=== PATIENT | female | born 2000 | race Caucasian/White ===

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

== ENCOUNTER 2018-07-21 14:20 | Emergency (ER) | payer MEDICAID, SELFPAY ==
[2018-07-21 14:21] VITALS: BP 120/79; PULSE 77; RESP 16; TEMP 37.1; O2SAT 98; BMI 38.8
--- NOTE | 2018-07-21 15:02 | ED.VISSUMM ---
- ER Visit Summary Date of Service: 07/21/18 Chief Complaint: Vaginal bleeding History of Present Illness: The patient is a 18 F here for vaginal bleeding. The bleeding started yesterday evening. She says it is heavier than her normal periods. She is passing clots. Her mother advised her to get checked out. She does take control and her next menstrual period is due next week. She is sexually active. Denies any rash or lesions or new discharge otherwise. She does have chronic kidney infections, but denies urinary symptoms. No fevers. Blood thinners. Physical Examination: Vitals are normal. Afebrile. Alert and oriented. No acute distress. Abdomen soft and nontender. Pelvic exam pending. Skin appears normal. Test Results: Urinalysis and test pending. Emergency Department Course and Treatment: Patient has 1 day of heavy vaginal bleeding. She is otherwise healthy. Her vitals are normal. Will check urine testing and a pelvic exam. Urinalysis shows some blood but no signs of infection. test was negative. Her nurse financial services counselor the pelvic exam. Showed mild bleeding. Cervix was closed. No lesions or other abnormal findings Patient does not require hospitalization or any other emergency testing. She is appropriate for outpatient follow-up for this. Treatment Plan: Discharged to follow-up for outpatient care. Return for any new or worsening issues. Disposition: Discharge Impression: 1. Vaginal bleeding This note was generated with [employer] dictation software. It may contain incorrect words, spelling, and punctuation that were not noted in review of the chart prior to signing ED Disposition - Plan for ED Patient: Chief Complaint: Vag Bleeding Referrals: Isaura Camejo MD [Primary Care Provider] -
--- NOTE | 2018-07-21 15:05 | ED.DCSUM_ITS ---
- ER Visit Summary Date of Service: 07/21/18 Chief Complaint: Vaginal bleeding History of Present Illness: The patient is a 18 F here for vaginal bleeding. The bleeding started yesterday evening. She says it is heavier than her normal periods. She is passing clots. Her mother advised her to get checked out. She does take control and her next menstrual period is due next week. She is sexually active. Denies any rash or lesions or new discharge otherwise. She does have chronic kidney infections, but denies urinary symptoms. No fevers. Blood thinners. Physical Examination: Vitals are normal. Afebrile. Alert and oriented. No acute distress. Abdomen soft and nontender. Pelvic exam pending. Skin appears normal. Test Results: Urinalysis and test pending. Emergency Department Course and Treatment: Patient has 1 day of heavy vaginal bleeding. She is otherwise healthy. Her vitals are normal. Will check urine testing and a pelvic exam. Urinalysis shows some blood but no signs of infection. test was negative. Her nurse community relations liaison the pelvic exam. Showed mild bleeding. Cervix was closed. No lesions or other abnormal findings Patient does not require hospitalization or any other emergency testing. She is appropriate for outpatient follow-up for this. Treatment Plan: Discharged to follow-up for outpatient care. Return for any new or worsening issues. Disposition: Discharge Impression: 1. Vaginal bleeding This note was generated with [employer] dictation software. It may contain incorrect words, spelling, and punctuation that were not noted in review of the chart prior to signing ED Disposition - Plan for ED Patient: Chief Complaint: Vag Bleeding Referrals: Isaura Camejo MD [Primary Care Provider] -
[2018-07-21 15:35] LABS: Bacteria 0 SEEN /hpf (None Seen); Mucous, Urine 0 SEEN /hpf (<or=2+)
[2018-07-21 15:41] LABS: Color, Urine Red (Yellow); Glucose, Dipstick Normal (Normal); Ketone-Dipstick 5 mg/dl (Negative); Leukocyte Esterase-Dipstick 25 /ul (Negative); Nitrite-Dipstick Negative (Negative); Occult Blood-Urine 250 /ul (Negative); Protein-Dipstick 100 mg/dl (Negative); Specific Gravity, Urine 1.015 (1.002-1.030); Urine Bilirubin Dipstick Negative (Negative); Urine Clarity Turbid (Clear); Urine Urobilinogen Normal (Normal)
[2018-07-21 15:52] LABS: Red Blood Cells-Urine > 100 SEEN /hpf (0-5)
[2018-07-21 15:53] LABS: Squamous Epithelial Cells - UA 0-5 SEEN /hpf (5-10); White Blood Cells 0-5 SEEN /hpf (0-5)
[2018-07-21 16:03] LABS: Internal QC Validated? YES +Cl - CLEAR BKGD; Pregnancy, Urine Negative Negative
--- NOTE | 2018-07-21 16:20 | ED.DEP ---
ED Disposition - Plan for ED Patient: Chief Complaint: Vag Bleeding Instructions: ED Bleed Irregular Vaginal Referrals: Rylie Baker MD [STAFF PHYSICIAN] -
[2018-07-21 16:26] VITALS: RESP 17
--- NOTE | 2018-07-21 16:26 | ED.RN ---
DISCHARGE INSTRUCTIONS GIVEN TO AND REVIEWED WITH PATIENT, PATIENT DENIES QUESTIONS OR CONCERNS AND VOICES UNDERSTANDING OF DISCHARGE INSTRUCTIONS. PT AMBULATES OUT OF ROOM WITHOUT DIFFICULTY.
== END 2018-07-21 16:27 | disposition home or self-care (01) ==
LOC: ED 15:04
PROVIDERS: Emergency Provider Emergency Medicine; Family Provider Pediatrics; PCP Pediatrics
DX: N93.9 Abnormal uterine and vaginal bleeding, unspecified (principal); R10.9 Unspecified abdominal pain; R30.0 Dysuria; Z72.0 Tobacco use
CPT/HCPCS: 81001; 81025; 99282

== ENCOUNTER → 2019-01-10 16:10 | Outpatient (CLI) | payer MEDICAID, SELFPAY ==
--- NOTE | 2019-01-10 16:15 | US_ITS ---
STUDY: RENAL ULTRASOUND - COMPLETE REASON FOR EXAM: Female, 18 years old. Recurrent urinary tract infection TECHNIQUE: Ultrasound evaluation of the kidneys was performed with real-time and static murray-scale imaging. COMPARISON: 08/21/2016 FINDINGS: RIGHT KIDNEY: Normal location of the right kidney, which is normal in size. The right kidney measures 10.3 cm. There is a normal cortex of the right kidney. There is no right renal mass or cyst. There are no right renal calculi. There is no right hydronephrosis. DISTAL RIGHT URETER: There is non-visualization of the distal right ureter. There is no demonstrated right ureterovesical junction calculus. There is a visualized right ureteral jet. LEFT KIDNEY: Normal location of the left kidney, which is normal in size. The left kidney measures 9.7 cm. There is a normal cortex of the left kidney. There is no left renal mass or cyst. There are no left renal calculi. There is no left hydronephrosis. DISTAL LEFT URETER: There is non-visualization of the distal left ureter. There is no demonstrated left ureterovesical junction calculus. There is a visualized left ureteral jet. BLADDER: The urinary bladder is partially distended and appears unremarkable. US/Kidney and Bladder IMPRESSION: Normal ultrasound of the kidneys and urinary bladder. Electronically Signed: Javier Hines, at 19:14 EDT Tel , Service support ,
== END ==
PROVIDERS: Family Provider Pediatrics; PCP Pediatrics; Referring Provider Urology; Visit Provider Urology
DX: N39.0 Urinary tract infection, site not specified (principal)
CPT/HCPCS: 76770

== ENCOUNTER → 2020-01-22 16:48 | Outpatient (CLI) | payer OTHER, MEDICAID, SELFPAY | PROVIDERS: PCP Pediatrics; Referring Provider Otolaryngology Otolaryngology/Facial Plastic Surgery; Visit Provider Otolaryngology Otolaryngology/Facial Plastic Surgery | DX: J02.9 Acute pharyngitis, unspecified (principal) | CPT/HCPCS: 87070 ==

== ENCOUNTER 2022-04-17 18:31 | Emergency (ER) | payer MEDICAID, SELFPAY ==
[2022-04-17 18:36] VITALS: BP 117/76; PULSE 74; RESP 15; TEMP 37.1; O2SAT 99; BMI 32.2
[2022-04-17 19:51] LABS: Absolute Lymphocyte Count 3.22 X10^3/uL (0.83-4.51); Absolute Neutrophil Count 6.5 X10^3/uL (2.0-7.7); Basophil# 0.03 X10^3/uL; Basophil% 0.3 % (0-1); Eosinophil# 0.05 X10^3/uL; Eosinophils% 0.5 % (0-5); Hematocrit 44.1 % (37-47); Hemoglobin 15.5 g/dL (12.0-15.0); Lymphocyte # 3.22 X10^3/ul (0.83-4.51); Lymphocyte % 31.1 % (19-41); Mean Corp Hgb Conc 35.1 g/dL (32-36); Mean Corpuscular Hgb 33.4 pg (27.0-32.0); Monocyte# 0.57 X10^3/uL; Monocyte% 5.5 % (0-10); NRBC Flagged by Analyzer 0 % (0-5); Neutrophil # 6.46 X10^3/uL (2.7-7.7); Neutrophil % 62.3 % (47-70); Platelet Count 300 K/mm3 (150-450); RBC Distribution Width CV 11.7 % (11.6-14.6); RBC Distribution Width SD 40.5 fl (35.1-43.9); Red Blood Count 4.64 M/mm3 (4.2-5.4); White Blood Count 10.4 K/mm3 (4.4-11.0)
[2022-04-17 20:02] LABS: Internal QC Validated? YES +Cl - CLEAR BKGD; Pregnancy, Serum, hCG Quali. NEGATIVE Negative
[2022-04-17 20:11] LABS: Color, Urine Yellow (Yellow); Glucose, Dipstick Normal (Normal); Ketone-Dipstick 5 mg/dl (Negative); Leukocyte Esterase-Dipstick 100 /ul (Negative); Nitrite-Dipstick Negative (Negative); Occult Blood-Urine 25 /ul (Negative); Protein-Dipstick 15 mg/dl (Negative); Urine Bilirubin Dipstick Negative (Negative); Urine Clarity Cloudy (Clear); Urine Urobilinogen Normal (Normal)
[2022-04-17 20:13] LABS: Anion Gap 7 (5-15); BUN 7 mg/dL (7-18); BUN/Creat Ratio 7.7 RATIO (10-20); Calcium,Total 9.3 mg/dL (8.5-10.1); Chloride 104 mmol/L (98-107); Creatinine, Serum 0.91 mg/dL (0.55-1.02); EST Glomerular Filtration Rate 81 mL/min (>60); Est Glom Filt Rate - Afr Amer 98 mL/min (>60); Estimated Creatinine Clearance 69.06 ml/min; Glucose 84 mg/dL (74-106); Potassium 4.2 mmol/L (3.5-5.1); Sodium Level 139 mmol/L (136-145)
[2022-04-17 20:26] LABS: White Blood Cells 5-10 SEEN /hpf (0-5)
[2022-04-17 20:27] LABS: Bacteria 4+ /hpf (None Seen); Red Blood Cells-Urine 0-5 SEEN /hpf (0-5); Squamous Epithelial Cells - UA 10-25 SEEN /hpf (5-10)
[2022-04-17 20:28] LABS: Mucous, Urine 1+ /hpf (<or=2+)
--- NOTE | 2022-04-17 20:41 | ED.VIS.GI ---
HPI HPI - GI History of Present Illness Chief Complaint: Abd Pain Narrative Narrative: 21-year-old female who denies significant past medical history presents with right lower quadrant abdominal pain. She states she has had it on and off for the last few weeks, but last evening around 9 or 10 PM, almost 24 hours ago, she had crampy right lower quadrant abdominal pain. She denies any fevers but has had chills. She is slightly nauseated but denies any vomiting. She endorses decreased appetite. She denies any dysuria or hematuria and states that she went to urgent care because of her abdominal pain and cramping and throbbing sensation in her right lower quadrant, and was told to come to the emergency department. No exacerbating or alleviating factors. No prior abdominal surgeries. PFSH PFSH Home Medications dicyclomine 20 mg tablet 20 mg PO TID PRN abdominal cramping #20 tabs 04/17/22 [Rx Last Taken Unknown] Allergy/AdvReac Type Severity Reaction Status Date / Time banana Allergy Nausea Verified 04/17/22 18:35 nickel [jael] Allergy Hives Verified 04/17/22 18:35 Social History Smoking Status: Current every day smoker tobacco type: cigarettes ROS ROS ED ROS Narrative Constitutional: No fever, positive chills. HEENT: No sore throat. No neck pain. No loss of vision. No rhinorrhea. Cardiovascular: No chest pain. No palpitations. No pedal edema. Respiratory: No cough, no shortness of breath. Abdominal: Right lower quadrant abdominal pain. Positive nausea. No vomiting. No problems with bowel movements. Genitourinary: No dysuria. No hematuria. Musculoskeletal: No myalgias. No arthralgias. Neurologic: No headaches. No dizziness. No lightheadedness. Skin: No rash. No change in color. Psychiatric: No depression. No anxiety. EXAM Physical Exam Narrative Exam Narrative: Afebrile. Vital signs noted. HEENT: Normocephalic. Atraumatic. PERRL, EOMI. Neck soft and supple. No point tenderness or step off. Cardiovascular: Regular rate and rhythm. No murmurs, rubs, or gallops appreciated. Respiratory: No tachypnea. Lungs clear to auscultation bilaterally. Gastrointestinal: Abdomen soft, mild tenderness to deep palpation right lower quadrant, with normoactive bowel sounds. No rebound or guarding. No peritoneal signs. Neurological: Awake. Alert. Nonfocal, nonlateralizing. Skin: No rash. Normal color. No pallor. Musculoskeletal: No pedal edema. Full range of motion extremities. Const Vital Signs: 04/17/22 18:36 04/17/22 20:58 Temperature 98.7 F Temperature Source Temporal Pulse Rate 74 74 Respiratory Rate 15 15 Blood Pressure 117/76 Blood Pressure Mean 89 Pulse Ox 99 Oxygen Delivery Method Room Air MDM MDM MDM Narrative Medical decision making narrative: Nursing protocol labs were obtained. CBC is normal with a normal white count of 10.4, hemoglobin slightly hemoconcentrated at 15.5 with hematocrit of 44.1. Normal platelet count of 300. BMP is grossly normal. Serum test is negative. Urinalysis is negative for infection with 0-5 RBCs and only 5-10 WBCs. However, there are squamous epithelials and I think this is a contaminant and I do not feel antibiotics are indicated. Given her abdominal pain in the right lower quadrant, and the differential diagnosis is appendicitis versus ovarian cyst versus diverticulitis, but she is not clinically showing other signs for these pathologies. CT of the abdomen and pelvis with IV contrast shows no acute process. She will be given a Bentyl tablet for her abdominal cramping. I will write her prescription for Bentyl and she will follow-up with a primary care physician. I feel she can be discharged safely home with follow-up. Repeat examination shows her resting comfortably on the cot. Disposition is discharged home in stable condition. Return instructions were reviewed. Lab Data Attestation: I reviewed the patient's lab results. Labs: Laboratory Results - last 24 hr 04/17/22 04/17/22 04/17/22 19:35 19:35 19:35 WBC 10.4 RBC 4.64 Hgb 15.5 H Hct 44.1 MCV 95.0 MCH 33.4 H MCHC 35.1 RDW Std Deviation 40.5 RDW Coeff of Alli 11.7 Plt Count 300 MPV 9.0 Immature Gran % (Auto) 0.300 Neut % (Auto) 62.3 Lymph % (Auto) 31.1 Baker % (Auto) 5.5 Eos % (Auto) 0.5 Baso % (Auto) 0.3 Absolute Neuts (auto) 6.5 Absolute Lymphs (auto) 3.22 Nucleated RBC % 0 Sodium 139 Potassium 4.2 Chloride 104 Carbon Dioxide 28.0 Anion Gap 7 BUN 7 Creatinine 0.91 Estim Creat Clear Calc 69.06 Est GFR (MDRD) Af Amer 98 Est GFR (MDRD) Non-Af 81 BUN/Creatinine Ratio 7.7 L Glucose 84 Calcium 9.3 Serum , Qual NEGATIVE Urine Color Urine Clarity Urine pH Ur Specific [place] Urine Protein Urine Glucose (UA) Urine Ketones Urine Occult Blood Urine Nitrite Urine Bilirubin Urine Urobilinogen Ur Leukocyte Esterase Urine RBC Urine WBC Ur Squamous Epith Cells Urine Bacteria Urine Mucus 04/17/22 19:40 WBC RBC Hgb Hct MCV MCH MCHC RDW Std Deviation RDW Coeff of Alli Plt Count MPV Immature Gran % (Auto) Neut % (Auto) Lymph % (Auto) Baker % (Auto) Eos % (Auto) Baso % (Auto) Absolute Neuts (auto) Absolute Lymphs (auto) Nucleated RBC % Sodium Potassium Chloride Carbon Dioxide Anion Gap BUN Creatinine Estim Creat Clear Calc Est GFR (MDRD) Af Amer Est GFR (MDRD) Non-Af BUN/Creatinine Ratio Glucose Calcium Serum , Qual Urine Color Yellow Urine Clarity Cloudy Urine pH 6.0 Ur Specific [place] 1.020 Urine Protein 15 H Urine Glucose (UA) Normal Urine Ketones 5 H Urine Occult Blood 25 H Urine Nitrite Negative Urine Bilirubin Negative Urine Urobilinogen Normal Ur Leukocyte Esterase 100 H Urine RBC 0-5 SEEN Urine WBC 5-10 SEEN Ur Squamous Epith Cells 10-25 SEEN Urine Bacteria 4+ Urine Mucus 1+ Radiography Diagnostic Testing: Clinical Impression(s) from Imaging Studies Abdomen/Pelvis CT 04/17/22 20:48 IMPRESSION: (NOT LISTED IN ORDER OF SIGNIFICANCE) There are no acute findings. Other findings as above. Electronically Signed: Stephen Sandhu MD at 21:19 EDT , Discharge Plan Triage Chief Complaint: Abd Pain ED Provider: Jeremy Pitt Dx/Rx/DC Orders Clinical Impression: Abdominal cramping, Abdominal pain, right lower quadrant Instructions: ED Abdominal Pain Unkn Cause Fem Prescriptions: New dicyclomine 20 mg tablet 20 mg PO TID PRN (Reason: abdominal cramping) Qty: 20 0RF Primary Care Provider: Care Physician,No Primary Referrals: Sonia Saldana, [Med Staff - Machinist Helper] - As Needed Care Physician,No Primary [Primary Care Provider] - Disposition Disposition: Home, Self Care
--- NOTE | 2022-04-17 20:48 | CT_ITS ---
STUDY: CT Abdomen And Pelvis W/ Contrast Injection 04/17/2022 9:17 PM REASON FOR EXAM: Female, 21 years old. ABDOMINAL PAIN Pain TECHNIQUE: Transaxial images were obtained without oral contrast, and with IV 100mL [id number] intravenous contrast. Individualized dose optimization techniques were used for this CT. COMPARISON: None. FINDINGS: The visualized lung bases are unremarkable. The visualized portions of the heart are within normal limits. Unremarkable liver. Unremarkable gallbladder and extrahepatic biliary system. Unremarkable spleen. Unremarkable pancreas. Unremarkable bilateral adrenal glands. No acute findings of the right kidney. No acute findings of the left kidney. Unremarkable visualized stomach. Unremarkable small intestine. Unremarkable colon. There is non-visualization of the appendix. There are no acute findings of the abdominal aorta. Unremarkable inferior vena cava. Subcentimeter mesenteric lymph nodes. Unremarkable urinary bladder. Normal visualized uterus. An intrauterine device is identified within the uterus. There are Nabothian cysts of the cervix. Unremarkable abdominal wall. Unremarkable osseous structures. CT/Abdomen/Pelvis W IV Cont ONLY IMPRESSION: (NOT LISTED IN ORDER OF SIGNIFICANCE) There are no acute findings. Other findings as above. Electronically Signed: Stephen Sandhu MD at 21:19 EDT ,
[2022-04-17 20:58] VITALS: PULSE 74; RESP 15
[2022-04-17] MEDS: Dicyclomine 10 MG Capsule 20 MG PO (21:49)
== END 2022-04-17 21:51 | disposition home or self-care (01) ==
PROVIDERS: Emergency Provider Emergency Medicine; Visit Provider Emergency Medicine
DX: R10.31 Right lower quadrant pain (principal); F17.210 Nicotine dependence, cigarettes, uncomplicated; R11.0 Nausea; R68.83 Chills (without fever)
CPT/HCPCS: 74177; 80048; 81001; 84703; 85025; 99283; Q9967; A4216